=== PATIENT | male | born 1970 | race Caucasian/White ===

== ENCOUNTER → 2022-05-03 23:48 | Outpatient (CLI) | payer BC, SELFPAY ==
[2022-05-03 18:48] LABS: Alanine Aminotransferase 18 U/L (12-78); Albumin Level 4.1 g/dl (3.5-5.0); Albumin/Globulin Ratio 1.6 (1.1-1.8); Alkaline Phosphatase 91 U/L (38-126); Anion Gap 7.1 mEq/L (5-15); Aspartate Amino Transferase 28 U/L (17-59); Bilirubin,Total 0.4 mg/dl (0.2-1.3); Blood Urea Nitrogen 10 mg/dl (9-20); Calcium 9.2 mg/dl (8.4-10.2); Carbon Dioxide 30 mmol/L (22.0-30.0); Chloride 104 mmol/L (98-107); Estimated Glomerular Filt Rate 102 ml/min (>60); GFR (African American) 123 ML/MIN (>60); Globulin 2.5 g/dL (1.3-3.2); Glucose 107 mg/dl (74-100); Potassium 4.1 mmoL/L (3.5-5.1); Sodium 137 mmol/L (136-145); Total Protein,Serum 6.6 g/dl (6.3-8.2)
[2022-05-03 19:19] LABS: Prostate Specific Ag Screen 0.7 ng/ml (0.0-4.0); Thyroid Stimulating Hormone 1.27 uIU/mL (0.465-4.68)
== END ==
PROVIDERS: PCP Family Medicine; Visit Provider Family Medicine
DX: R53.1 Weakness (principal); I10 Essential (primary) hypertension; N40.0 Benign prostatic hyperplasia without lower urinary tract symptoms; Z12.5 Encounter for screening for malignant neoplasm of prostate
CPT/HCPCS: 80053; 84443; G0103

== ENCOUNTER → 2022-12-04 10:58 | Outpatient (CLI) | payer BC, SELFPAY ==
--- NOTE | 2022-12-04 10:58 | NM_ITS ---
APPROVED REPORT Exam: Nuclear Stress Test Indication: HTN, TOB USE, C.P., SOB Patient Location: Outpatient Stress Tech: Alesha Calle NM Tech:ALVARO Dubois RT (R)(N)(M) Ht: 5 ft 7 in Wt: 125 lbs HR: 66 bpm BP: 180/94 mmHg BSA: 1.66 m2 Rhythm: NSR TID: 0.99 BMI: 19.5 History: HTN, TOB USE, C.P., SOB Procedure: Patient received 0.4 mg of intravenous Lexiscan, resting heart rate 66 bpm, resting blood pressure 180/94 mmHg, with Lexiscan maximum heart rate achieved was 111 bpm which is % of the maximum predicted heart rate and blood pressure was 198/105 mmHg. With Lexiscan, patient denied any complaint of chest pain. Cardiac Stress and Resting SPECT Images: Cardiac Stress and Resting SPECT images were obtained using technetium 99m Myoview 30.6 mCi stress and 10.97 mCi at rest. Resting and stress imaging in supine and prone positions demonstrate a large sized, moderate, predominantly fixed perfusion defect in the inferior LV wall. There is minimal reversibility in the surrounding region. Gated imaging demonstrates moderate reduction in global LV systolic function. There is moderate to severe hypokinesis of the basal inferior LV wall. LVEF is calculated at 38%. Conclusion: Large sized, moderate, predominantly fixed perfusion defect in the inferior LV wall. There is minimal reversibility in the surrounding region. Gated imaging demonstrates moderate reduction in global LV systolic function. There is moderate to severe hypokinesis of the basal inferior LV wall. LVEF is calculated at 38%. Due to significant discrepancy between LVEF on TTE versus nuclear stress test, further evaluation of LV systolic function as recommended by cardiac MRI (cardiomyopathy protocol). Electronically signed by : Heena Fernandez MD 12/07/2022 23:42:04
--- NOTE | 2022-12-04 13:24 | CA_ITS ---
APPROVED REPORT EXAM: Comprehensive 2D, Doppler, and color-flow Echocardiogram Wind Farm Engineer: Saundra Wood CRT Ht: 5 ft 4 in Wt: 117lbs BSA: 1.56 BP: 201/108 mmHg Indications: Hypertension/HDD, smoker 2D Dimensions LVOT 2.09 cm (M/F) 1.5-2.5 LA Volume 29.60 mL LA Volume Index 18.50 mL/m2 (M/F) 16-34 M-Mode Dimensions RVDd 1.63 cm (0.9-2.6) LA Diam 2.64 cm (1.9-4.0) LVDd 4.42 cm (3.5-5.7) Ao Diam 3.66 cm (2.0-3.7) LVDs 3.49 cm (3.5-5.7) IVSd 1.48 cm (0.6-1.1) PWd 1.10 cm (0.6-1.1) EF (Teich) 43.00% FS 21.00% EDV (Teich) 88.60 mL TAPSE 1.76 (<1.7) ESV (Teich) 50.50 mL LV Diastology E Decel Time 233.00 (160-240 msec) E/A Ratio 1.01 MED E' 6.00 (< 7 cm/sec) MED A' 10.20 cm/s E'/MED E' Ratio 8.35 (>14) LAT E' 5.10 (<10 cm/sec) LAT A' 9.10 cm/s E/LAT E' Ratio 9.82 (>14) Aortic Valve AO Peak GR. 5.30 mmHg Mitral Valve MV A Velocity 50.00 (40-130 cm/s) E/A Ratio 1.01 MV Decel. Time 233.00 (160-240 ms) Pulmonary Valve PV Peak Velocity 99.00 (50-150 cm/s) Tricuspid Valve TR P. Velocity 193.00 cm/s RAP Estimate 10.00 mmHg RVSP 25.00 mmHg Left Ventricle The left ventricle is normal size. The left ventricular systolic function is normal. The left ventricular ejection fraction is within the normal range. There is normal left ventricular wall thickness. There is normal LV segmental wall motion. The left ventricular diastolic function is normal. LVEF is 55% Right Ventricle The right ventricle is normal size. The right ventricular systolic function is normal. Atria The left atrium size is normal. The right atrium size is normal. There is no Doppler evidence of interatrial shunt. Aortic Valve The aortic valve opens well. There is no aortic valvular stenosis. No aortic regurgitation is present. Mitral Valve The mitral valve is normal in structure. No evidence of mitral valve stenosis. There is no mitral valve regurgitation noted. Tricuspid Valve The tricuspid valve leaflets are thin and pliable. Trace tricuspid regurgitation. There is insufficient TR jet to estimate RVSP. Pulmonic Valve The pulmonary valve is normal in structure. Trace pulmonic regurgitation. Great Vessels The aortic root is normal in size. The ascending aorta is not well visualized. IVC is normal in size and collapses >50% with inspiration. Pericardium There is no pericardial effusion. Other Information Study Quality: Adequate Conclusion Normal biventricular systolic function. No significant valvular stenosis or regurgitation. Electronically signed by : Heena Fernandez MD 12/04/2022 22:12:09
--- NOTE | 2022-12-04 14:52 | CA_ITS ---
APPROVED REPORT Exam: Pharmacologic Technologist: Alesha Calle Ht: 5 ft 4 in Wt: 117 lbs BSA: 1.56 m2 HR: 66 bpm BP: 180/94 mmHg Rhythm: NSR Indications: Shortness of Breath Medical History Medications: Lisinopril,,,,, Metoprolol,,,,, Nitroglycerin,,,,, Stress Test Details Test: LEXISCAN HR Resting HR: 71 bpm Max Heart Rate (APMHR): 169 bpm Max HR Achieved: 115 bpm Target HR (85% APMHR): 144 bpm % of APMHR: 68 Recovery HR: 105 bpm BP Resting BP: 180.0/94.0 mmHg Max BP: 198.0/103.0 mmHg Recovery BP: 163.0/97.0 mmHg ECG Resting ECG: Normal sinus rhythm, ST-T abnormalities inferiorly or laterally. Stress ECG: Exaggeration of baseline ST depression Arrhythmia: None Clinical Exercise duration: 04:00 min Highest Stage Achieved: Stress ECG Conclusion Symptoms: Shortness of air, head discomfort, mild stomach discomfort. No chest pain. Arrhythmias/Ectopy: None ST-T Changes: Exaggeration of baseline ST-T depression Conclusion: Nondiagnostic Lexiscan stress test due to baseline abnormalities. Myoview images reported separately. Test Summary REST . . . . . . . Resting REST 05:03 . . 71 . 180/ 94 . . Stage 1 . . . . . . . Myoview Injected Stage 1 01:00 . . 107 . . . . Stage 2 01:00 . . 107 . 198/103 . . Stage 3 01:00 . . 97 . 169/ 96 . . Stage 4 01:00 . . 100 . 151/ 94 . Stop exercise at 04:00 RECOVERY 01:00 . . 98 . . . . RECOVERY 02:00 . . 100 . 155/ 94 . . RECOVERY 03:00 . . 100 . 163/ 97 . . RECOVERY 03:19 . . 95 . 163/ 97 . . Electronically signed by : Heena Fernandez MD 12/07/2022 23:33:59
== END ==
PROVIDERS: PCP Family Medicine; Visit Provider Physician Assistant
DX: R07.9 Chest pain, unspecified (principal); I10 Essential (primary) hypertension; R94.31 Abnormal electrocardiogram [ECG] [EKG]; Z72.0 Tobacco use
CPT/HCPCS: 78452; 93017; 93306; A9502; J2785

== ENCOUNTER → 2022-12-26 07:03 | Outpatient (CLI) | payer BC, SELFPAY | PROVIDERS: PCP Family Medicine | DX: R94.39 Abnormal result of other cardiovascular function study (principal) ==

== ENCOUNTER 2023-01-13 08:25 | Outpatient (CLI) | payer BC, SELFPAY ==
[2023-01-13] VITALS (11 sets, daily range): BP systolic 120–182; BP diastolic 62–102; PULSE 57–74; RESP 18; TEMP 36.3; O2SAT 95–100; BMI 20.9
--- NOTE | 2023-01-13 08:26 | CT_ITS ---
APPROVED REPORT Residential Roofer Helper: CLINICAL INDICATION Chest Pain TECHNIQUE Image Acquisition: A 128 slice MDCT scanner (DigitalVisiona View) was used for data acquisition. A noncontrast coronary calcium scan was performed. A CT attenuation threshold of 130 Hounsfield units (HU) was used for the detection of calcium in contiguous voxels of 1 sq mm in area to be counted as individual lesions. Bolus tracking in the ascending aorta with a threshold of 180 HU was performed. Immediately afterwards, ECG synchronized cardiac CT was then performed from the cardiac base to apex using retrospective gating with ECG tube current modulation. A total of 85 mL of Isovue 370 mg/mL contrast medium was administered at 5 mL/sec followed by a saline flush using a biphasic injection protocol. A tube voltage of 120 KVp was used. The patient received the following medications prior to the cardiac CT. 50 mg of oral metoprolol 10 mg of intravenous metoprolol 0.8 mg of sublingual nitroglycerin The average heart rate at the time of acquisition was 65 bpm and regular. Image Reconstruction Transaxial images were reconstructed at 0.67 mm slide thickness. Data was reviewed interactively on an advanced workstation capable of 2 and 3-dimensional displays in all conventional reconstruction formats, including multiplanar reformations, maximum intensity projections, curved multiplanar reformations, and volume rendered reconstructions. When applicable, selected routine images describing the relevant coronary anatomy and pathology were saved and sent to PACS. Complications None Technical Quality Overall image quality was good. Coronary artery opacification was adequate. Total DLP (Dose-Length Product) is 1298 mGy-cm. The reported value represents the total of one or more individual components during the CT acquisition of this date and at this time, and as such, the same value may appear in more than one CT report depending on the interpreting/reporting physicians. COMPARISON None FINDINGS CT Coronary Calcium Scoring LMA (Left Main Artery) = 0 LAD (Left Anterior Descending) = 396 LCX (Left Coronary Circumflex) = 168 RCA (Right Coronary Artery) = 196 Total Calcium Score = 760 using the AJ-130 method. The observed calcium score of 760 is at 99th percentile for subjects of the same age, sex, and race/ethnicity. The interpretation of the calcium heart score is based on the following continuum*: 0 = no calcified plaque detected (risk of coronary artery disease is very low ??? less than 5%) 1-10 = calcium detected in extremely minimal levels (risk of coronary diseases is still low ??? less than 10%) 11-100 = mild levels of plaque detected with certainty (mild or minimal narrowing of heart arteries is likely) 101-400 = definite,at least moderate levels of plaque detected (relatively high risk of a heart attack within 3-5 years) >401-999 = extensive levels of plaque detected (high risk of heart attack, high levels of vascular disease are present, high likelihood of at least one significant coronary narrowing) *The calcium heart score quantifies the burden of coronary calcification/plaque in the coronary arteries. The calcium heart score is not able to evaluate the presence or burden of non-calcified (i.e. soft) plaque. There is also identifiable calcification in the descending aorta, but no calcification in the aortic valve, mitral annulus or mitral valve, pericardium, or myocardium. Coronary CT Angiography Coronaries have normal origin and proximal course. The coronary arterial system is right dominant. Note: Stenosis is reported as maximum percentage diameter stenosis. Quantitative Stenosis Grading: Left Main (LM): The left main originates normally from the lef
--- NOTE | 2023-01-13 08:26 | CT_ITS ---
FINAL REPORT CLINICAL HISTORY: malignant hypertension COMPARISON: None FINDINGS: Post contrast axial imaging of the aorta and bilateral lower extremity was obtained and reviewed.This study was performed with techniques to keep radiation doses as low as reasonably achievable (ALARA). Individualized dose reduction techniques using automated exposure control or adjustment of mA and/or kV according to the patient's size were employed. There is no evidence of aortic aneurysm. There is no evidence of aortic stenosis. The SMA is unremarkable. 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 There is high-grade stenosis of the proximal left renal artery, greater than 90%. There is 50% % luminal diameter stenosis of the right common iliac artery. The left common and external iliac arteries are occluded with reconstitution at the level of the common femoral artery. Right: The right common femoral artery, deep femoral artery and superficial femoral artery are all patent, without stenosis. There is no stenosis of the popliteal artery. The anterior and posterior tibial and peroneal arteries are patent to the lower leg. The anterior and posterior tibial arteries are patent to the foot. Left: The left common femoral artery, deep femoral artery and superficial femoral artery are all patent, without stenosis. There is no stenosis of the popliteal artery. The anterior and posterior tibial and peroneal arteries are patent to the lower leg. The anterior and posterior tibial arteries are patent to the foot. Review of the remaining abdomen and pelvis demonstrates no evidence of mass or adenopathy. There is no fluid collection or acute inflammatory process. 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 There is 50% stenosis of the right common iliac artery and the left common and external iliac arteries are occluded. There is high-grade proximal left renal artery stenosis of greater than 90 degrees. There is three-vessel runoff to the lower legs. Reviewed, Interpreted and Dictated by Vinay Munoz MD Transcribed by Carmen Daniels Authenticated and [facility]
[2023-01-13 09:38] LABS: Anion Gap 8.6 mEq/L (5-15); Blood Urea Nitrogen 12 mg/dl (9-20); Calcium 9.4 mg/dl (8.4-10.2); Carbon Dioxide 31 mmol/L (22.0-30.0); Chloride 101 mmol/L (98-107); Creatinine Clearance Estimated 66 mL/min (50-200); Estimated Glomerular Filt Rate 70 ml/min (>60); GFR (African American) 85 ML/MIN (>60); Glucose 95 mg/dl (74-100); Potassium 4.6 mmoL/L (3.5-5.1); Sodium 136 mmol/L (136-145)
== END 2023-01-13 11:13 | disposition home or self-care (01) ==
PROVIDERS: PCP Family Medicine; Visit Provider Physician Assistant
DX: I10 Essential (primary) hypertension (principal); I20.89 Other forms of angina pectoris; R94.31 Abnormal electrocardiogram [ECG] [EKG]; R94.39 Abnormal result of other cardiovascular function study; Z72.0 Tobacco use
CPT/HCPCS: 75571; 75574; 75635; 80048; Q9967

== ENCOUNTER 2024-03-02 13:19 | Outpatient (CLI) | payer BC, SELFPAY ==
[2024-03-02 19:53] LABS: Alanine Aminotransferase 16 U/L (12-78); Albumin/Globulin Ratio 1.8 (1.1-1.8); Alkaline Phosphatase 80 U/L (38-126); Aspartate Amino Transferase 27 U/L (17-59); Bilirubin,Total 0.6 mg/dl (0.2-1.3); Blood Urea Nitrogen 12 mg/dl (9-20); Calcium 9.4 mg/dl (8.4-10.2); Carbon Dioxide 27 mmol/L (22.0-30.0); Chloride 103 mmol/L (98-107); Estimated Glomerular Filt Rate 63 ml/min (>60); GFR (African American) 77 ML/MIN (>60); Globulin 2.2 g/dL (1.3-3.2); Glucose 90 mg/dl (74-100); Sodium 134 mmol/L (136-145); Total Protein,Serum 6.2 g/dl (6.3-8.2)
[2024-03-02 19:54] LABS: Basophils % 1.4 % (0.1-2.0); Eosinophils % 2.4 % (0.1-12.0); Hematocrit 46.3 % (42.0-52.0); Hemoglobin 16.1 g/dL (14.1-18.0); Lymphocytes % 26.8 % (10-50); Mean Corpuscular HGB Conc 34.8 g/dL (31.8-35.4); Mean Corpuscular Hemoglobin 34.6 pg (27.0-31.2); Mean Corpuscular Volume 99.6 fl (80-94); Mean Platelet Volume 9.8 fl (7.4-10.4); Monocytes % 14.8 % (1.7-9.3); Neutrophils % 54.3 % (37.0-80.0); Platelet Count 217 K/mm3 (142-424); Red Blood Count 4.65 M/mm3 (4.60-6.20); Red Cell Distribution Width 14.9 % (11.5-17.5); White Blood Count 7.2 K/mm3 (4.8-10.8)
[2024-03-02 19:55] LABS: Basophils # 0.1 K/mm3 (0-0.2); Eosinophils # 0.2 K/mm3 (0.0-0.4); Lymphocytes # 1.9 K/mm3 (0.7-4.5); Monocytes # 1.1 K/mm3 (0.1-1.0); Neutrophils # 3.9 K/mm3 (1.8-7.8)
== END 2024-03-02 23:59 | disposition home or self-care (01) ==
LOC: LAB.DROPOF 03-04 13:20
PROVIDERS: PCP Family Medicine; Visit Provider Family Medicine
DX: I73.9 Peripheral vascular disease, unspecified (principal); D50.0 Iron deficiency anemia secondary to blood loss (chronic)
CPT/HCPCS: 80053; 85025